=== PATIENT | female | born 1950 | race Caucasian/White ===

== ENCOUNTER 2023-07-27 12:27 | Outpatient (AMB) | payer OTHER, SELFPAY ==
--- NOTE | 2023-07-27 12:51 | MHC.PC.OV ---
Vital Signs 07/27/23 12:52 07/27/23 14:34 Height 5 ft 4 in Weight 199 lb BMI 34.2 BP 160/90 H 160/90 H Blood Pressure Location Lt brachial Lt brachial Position Sitting Sitting Intake Visit Reasons: NPV- requesting pe Intake Note: New patient, establishing care Meter Calibrator Required: No Accompanied by: Self / Same As Patient Allergies metformin Adverse Reaction (Intermediate, Verified 07/27/23 13:29) Diarrhea Medication List - Last Reconciled 07/27/23 by Casandra Akers MD atorvastatin 40 mg PO BEDTIME gabapentin 300 mg PO BID glimepiride 4 mg PO DAILY Tobacco use date assessed: 07/27/23 Fall risk assessment: 1 Fall in past year Last assessed Fall Risk: 07/27/23 Dental Screening Dental Screen Date: 07/27/23 Did you have a dental visit in the last 12 months?: Yes Did you have a dental problem in the last 6 months where you did not have access to dental care?: No Was dental information given to patient?: Patient has dentist HPI HPI Comments History of Present Illness Details This is a 73-year-old female with diabetes mellitus type 2 without long-term current use of insulin complicated by neuropathy, hypertension, and hyperlipidemia that comes today to establish care. She denies any chest pain or shortness on breath. Blood pressure elevated but she used to be on diltiazem and has run out of it. I will start her on losartan to protect her kidneys. She agreed and understand. Blood pressure will be recheck in 3 weeks by nurse navigator. A1c also elevated but she has been out of her medications for over a month. Lipid panel will be order and her LDL goal should be less than 70. Neuropathy stable with gabapentin. She had a fit test this month but results are still pending. Mammogram and bone density was over 2 years ago. [facility] Surgical History (Updated 07/27/23 @ 13:31 by Casandra Akers MD) History of History of elbow surgery History of fracture of wrist History of bilateral knee replacement Family History Father Aneurysm Mother Cancer Social History Housing: House Alcohol intake: current Alcohol intake frequency: holidays/special occasions only Alcohol type: wine Patient Tobacco Use Status: Never used Tobacco e-Cigarette/Vaping Use: Never Used Second Hand Smoke Exposure: No service: No Current occupational status: retired Cognitive needs: Yes Hearing needs: No Vision needs: Yes Questionnaire PHQ-9 Over the last 2 weeks, how often have you been bothered by any of the following problems? 1. Little interest or pleasure in doing things: not at all 2. Feeling down, depressed, or hopeless: not at all 3. Trouble falling or staying asleep, or sleeping too much: not at all 4. Feeling tired or having little energy: not at all 5. Poor appetite or overeating: not at all 6. Feeling bad about yourself - or that you are a failure or have let yourself or your family down: not at all 7. Trouble concentrating on things, such as reading the newspaper or watching television: not at all 8. Moving or speaking so slowly that other people could have noticed. Or the opposite - being so fidgety or restless that you have been moving around a lot more than usual: not at all 9. Thoughts that you would be better off or of hurting yourself in some way: not at all Total score: 0 Source: Developed by Drs. Blade Osman, Dania Peralta, Josue Carreno and colleagues, with an educational patricia from [employer]. Thrive Questionnaire Date Thrive assessed: 07/27/23 I am a: Patient What is your living situation today?: I have a steady place to live Within the past 12 months, did the food you bought not last and you didn't have the money to get more?: Never true Within the past 12 months, did you worry whether your food would run out before you got money to buy more?: Never true Do you have trouble paying for medicines?: No Do you have trouble getting transportation to medical appointments?: No Do you have trouble paying your heating and electricity bill?: No Do you have trouble taking care of your child, family member or friend?: No Do you have trouble with day-to-day activities such as bathing, preparing meals, shopping, managing finances, etc.?: No Are you currently unemployed and looking for a job?: No Are you interested in more education?: No Please select the resources that you would like help with: None Currently or been in a relationship where the following occur: no concerns reported THRIVE Score: 0 AUDIT C Alcohol Use Questionnaire (AUDIT-C) 1. How often do you have a drink containing alcohol?: Monthly or less 2. How many drinks containing alcohol do you have on a typical day when you are drinking?: 1 or 2 3. How often do you have six or more drinks on one occasion?: Never Total Score: 1 MYRIAM-7 AMB Questionnaire MYRIAM-7 Date MYRIAM - 7 assessed: 07/27/23 Feeling nervous, anxious, or on edge: 0 = Not at all Not being able to stop or control worryin = Not at all Worrying too much about different things: 0 = Not at all Trouble relaxin = Not at all Being so restless that it is hard to sit still: 0 = Not at all Becoming easily annoyed or irritable: 0 = Not at all Feeling afraid as if something awful might happen: 0 = Not at all Total MYRIAM-7 score (0-4 normal; 5-9 mild; 10-14 moderate; 15-21 severe): 0 Source: Developed by Drs. Blade Osman, Dania Peralta, Josue Carreno and colleagues, with an educational patricia from [employer]. Review of Systems Const All systems reviewed & are unremarkable except as noted in HPI and below Card Denies chest pain at rest, Denies chest pain with activity, Denies edema, Denies irregular heart rhythm, Denies claudication, Denies dyspnea, Denies dyspnea on exertion, Denies orthopnea, Denies paroxysmal nocturnal dyspnea and Denies slow heart rate Resp Denies cough, Denies dyspnea and Denies dyspnea on exertion Physical exam (Primary Care) Vital Signs: Last Vital Signs BP 160/90 H 07/27/23 12:52 BMI result Body Mass Index 34.2 Tobacco/Smoking Status: Tobacco use Status Tobacco use date assessed 07/27/23 07/27/23 13:02 Patient Tobacco Use Status Never used Tobacco 07/27/23 13:02 Tobacco use type 07/27/23 13:02 e-Cigarette/Vaping Use Never Used 07/27/23 13:02 PHQ-9: PHQ-9 Score PHQ-9: Total score 0 07/27/23 13:40 Thrive Assessment: Date of Thrive Assessment Date Thrive assessed 07/27/23 07/27/23 13:02 Currently or been in a relationship where the following occur: no concerns reported Const Limitations: ambulation with cane Resp Effort & Inspection: normal respiratory effort Auscultation: clear to auscultation bilaterally Cardio Jugular venous distension: no JVD Rate: regular rate Rhythm: regular rhythm Heart sounds: S1 normal heart sound present and S2 normal heart sound present Extrem General: Yes full ROM Results AMB Hemoglobin A1c AMB Hemoglobin A1c 7.5 % Last Edit by ALHAJI Bob on 07/27/23 13:40 Results Reviewed Results Reviewed: Laboratory Last Values Hgb A1c (Clinic) 7.5 % (4.0-6.0) H 07/27/23 13:37 Assessment and Plan Assessment & Plan (1) Type 2 diabetes mellitus, without long-term current use of insulin: Code(s): E11.9 - Type 2 diabetes mellitus without complications Plan: Continue glimepiride. A1c goal is equal or less than 7%. (2) Diabetic neuropathy: Code(s): E11.40 - Type 2 diabetes mellitus with diabetic neuropathy, unspecified Plan: Continue gabapentin. (3) Essential hypertension: Code(s): I10 - Essential (primary) hypertension Plan: Start losartan. Blood pressure goal is equal or less than 130/80. Recheck blood pressure with nurse navigator. (4) Hyperlipidemia LDL goal <70: Code(s): E78.5 - Hyperlipidemia, unspecified Plan: Continue statins. LDL goal is less than 7 Orders: Orders MM screening mammo BI Today Z12.31 - Encounter for screening mammogram for malignant neoplasm of breast Lipid Panel Today E78.5 - Hyperlipidemia, unspecified AMB Hemoglobin A1c Today E11.9 - Type 2 diabetes mellitus without complications XR DEXA axial skeleton Today N95.9 - Unspecified menopausal and perimenopausal disorder Microalbumin, Random (w Creat) Today E11.9 - Type 2 diabetes mellitus without complications Vitamin D 25-OH Total Today E55.9 - Vitamin D deficiency, unspecified Comprehensive [place]. Panel Fast Today E11.9 - Type 2 diabetes mellitus without complications Medications: New losartan 25 mg PO DAILY 90 tabs 1RF 90 days I10 - Essential (primary) hypertension gabapentin 300 mg PO BID 180 caps 1RF 90 days atorvastatin 40 mg PO BEDTIME 90 tabs 1RF 90 days glimepiride 4 mg PO DAILY 90 tabs 1RF 90 days Coding Level of Care Code New Pt Level 4 (94689) Diagnoses Type 2 diabetes mellitus, without long-term current use of insulin E11.9 Diabetic neuropathy E11.40 Essential hypertension I10 Hyperlipidemia LDL goal <70 E78.5 Time Spent (min) 24
[2023-07-27 12:52] VITALS: BP 160/90; BMI 34.2
[2023-07-27 14:34] VITALS: BP 160/90
== END 2023-07-27 13:41 | disposition home or self-care (01) ==
PROVIDERS: PCP Internal Medicine; Visit Provider Internal Medicine
DX: E11.40 Type 2 diabetes mellitus with diabetic neuropathy, unspecified (principal); I10 Essential (primary) hypertension; E78.5 Hyperlipidemia, unspecified
CPT/HCPCS: 83036; 99204

== ENCOUNTER 2023-09-28 10:10 | Outpatient (REF) | payer OTHER, SELFPAY ==
--- NOTE | ~2023-09-28 | MM_ITS ---
EXAMINATION: BONE DENSITOMETRY CLINICAL INDICATION: Unspecified menopausal and perimenopausal disorder. COMPARISON: This is the patient's baseline examination. TECHNIQUE: Using a kapturem DXA System (software version: 13.1) manufactured by [employer], dual-energy x-ray absorptiometry was performed of the lumbar spine and left hip. The images are of good technical quality. Summary results are attached. FINDINGS: LEFT FEMUR, NECK: BMD 0.684 g/cm2, Z-score -1.3, T-score -2.5, osteoporosis. LEFT FEMUR, TOTAL: BMD 0.753 g/cm2, Z-score -1.0, T-score -2.0, osteopenia. AP SPINE L1-L4 (excluding L2): The data of L1-L4 has been changed to exclude the L2 vertebral body, because degenerative sclerosis at this level may cause overestimation of lumbar spine density. BMD 1.106 g/cm2, Z-score 0.3, T-score -0.5, normal. IDENTIFIED RISK FACTORS: Height loss, history of fracture (adult), low calcium intake, menopause. HISTORY OF FRACTURE: Wrist. MEDICATIONS: None listed. MM/XR DEXA axial skeleton IMPRESSION: 1. DIAGNOSIS: Severe osteoporosis based on the lowest T-score value of -2.5 in the femoral neck and history of fracture applying World Health Organization criteria. 2. 10-YEAR FRACTURE RISK PREDICTION, FRAX: According to the guidelines, FRAX calculation should only be performed on patients in the osteopenia bone density category. Therefore, FRAX was not performed on this patient. 3. Treatment Recommendations: NOF guidelines recommend consideration for treatment in postmenopausal women and men age 50 and older presenting with the following: -A hip or vertebral (clinical or morphometric) fracture. -T-score less than or equal to -2.5 at the femoral neck or spine after appropriate evaluation to exclude secondary causes. -Low bone mass at the hip or spine and a 10-year fracture probability by FRAX of greater than or equal to 3% for hip fracture or greater than or equal to 20% for major osteoporotic fracture based on the [place] adapted WHO algorithm. 4. Other Recommendations: All treatment decisions require clinical judgment and consideration of individual patient factors, including patient preferences, comorbidities, previous drug use, risk factors not captured in the FRAX model (e.g. frailty, falls, vitamin D deficiency, increased bone turnover, interval significant decline in bone density) and possible under or overestimation of fracture risk by FRAX. Additional medical evaluation for secondary cause of low bone mineral density may be appropriate. FUTURE SCAN RECOMMENDATION: People with diagnosed cases of osteoporosis or at high risk for fracture should have regular bone mineral density tests. For patients eligible for Medicare, routine testing is allowed once every 2 years. The testing frequency can be increased to one year for patients who have rapidly progressing disease, those who are receiving or discontinuing medical therapy to restore bone mass, or have additional risk factors.
== END 2023-09-28 10:11 | disposition home or self-care (01) ==
LOC: HO.MAMMO 10:10
PROVIDERS: PCP Internal Medicine; Visit Provider Internal Medicine
DX: Z12.31 Encounter for screening mammogram for malignant neoplasm of breast (principal); Z13.820 Encounter for screening for osteoporosis; Z78.0 Asymptomatic menopausal state
CPT/HCPCS: 77063; 77067; 77080

== ENCOUNTER → 2023-09-28 10:45 | Outpatient (BNV) | payer OTHER, SELFPAY | PROVIDERS: PCP Internal Medicine; Visit Provider Radiology Diagnostic Radiology | DX: Z12.31 Encounter for screening mammogram for malignant neoplasm of breast (principal) | CPT/HCPCS: 77063; 77067 ==

== ENCOUNTER 2024-08-22 09:56 | Outpatient (REF) | payer MEDICARE, SELFPAY ==
[2024-08-22 12:01] LABS: Creatinine Urine 32.28 mg/dL; Microalbumin Urine < 5.0 mg/L
[2024-08-22 12:07] LABS: Alanine Aminotransferase 12 U/L (0-31); Albumin Level 4.4 g/dL (3.5-5.0); Alkaline Phosphatase 84 U/L (39-117); Anion Gap 13 (12-20); Aspartate Amino Transferase 20 U/L (5-31); Bilirubin Total 0.6 mg/dL (0.0-1.0); Blood Urea Nitrogen 12 mg/dL (9-16); Carbon Dioxide 28 mmol/L (22-29); Chloride 104 mmol/L (96-108); Cholesterol 153 mg/dL (<200); Estimated Glomerular Filt Rate 59; Glucose Fasting 141 mg/dL (60-99); HDL Cholesterol 42 mg/dL (>40); LDL Cholesterol Calculated 92 mg/dL (<100); Potassium 5.1 mmol/L (3.3-5.1); Sodium 140 mmol/L (135-145); Triglycerides 95 mg/dL (<150)
[2024-08-22 12:22] LABS: Vitamin D 25-OH Total 37.2 ng/mL (>30)
== END 2024-08-22 09:57 | disposition home or self-care (01) ==
LOC: HO.LAB 09:56
PROVIDERS: PCP Internal Medicine; Visit Provider Internal Medicine
DX: Z00.00 Encounter for general adult medical examination without abnormal findings (principal); E11.40 Type 2 diabetes mellitus with diabetic neuropathy, unspecified; E78.5 Hyperlipidemia, unspecified; R80.9 Proteinuria, unspecified; E55.9 Vitamin D deficiency, unspecified; Z79.899 Other long term (current) drug therapy
CPT/HCPCS: 36415; 80053; 80061; 82043; 82306; 82570; 83036; 96127; 99397

== ENCOUNTER 2024-08-22 10:53 | Outpatient (AMB) | payer MEDICARE, SELFPAY ==
--- NOTE | 2024-08-22 11:03 | MHC.PC.OV ---
Vital Signs 08/22/24 11:06 Height 5 ft 4 in Weight 191 lb BMI 32.8 BP 132/86 Blood Pressure Location Lt brachial Position Sitting Intake Visit Reasons: annual exam - see comments Intake Note: Patient here for a physical exam Negative Notcher Required: No Accompanied by: Self / Same As Patient Allergies metformin Adverse Reaction (Intermediate, Verified 08/22/24 11:27) Diarrhea Medication List - Last Reconciled 08/22/24 by Casandra Akers MD atorvastatin 40 mg PO BEDTIME 90 days gabapentin 300 mg PO BID 90 days glimepiride 4 mg PO DAILY 90 days losartan 25 mg PO DAILY 90 days Tobacco use date assessed: 08/22/24 Fall risk assessment: No Falls in past year Last assessed Fall Risk: 08/22/24 Dental Screening Dental Screen Date: 08/22/24 Did you have a dental visit in the last 12 months?: Yes Did you have a dental problem in the last 6 months where you did not have access to dental care?: No Was dental information given to patient?: Patient has dentist HPI HPI Comments History of Present Illness Details The patient is a 74-year-old female presenting for a physical exam and management of chronic conditions. She has a history of osteoporosis, which was diagnosed following a bone density test conducted last year. The patient has not received any treatment for osteoporosis and is considering options for management. The patient has diabetes mellitus, managed with Glymepiride and has an allergy to Metformin, which causes diarrhea. Her A1c was recorded at 12.2% during this visit, indicating poor glycemic control. She is currently on Atorvastatin for hyperlipidemia and Losartan for hypertension. The patient has a history of neuropathy, for which she takes Gabapentin as needed, primarily at bedtime. She has undergone multiple surgeries, including four C-sections, elbow surgery, wrist fracture repair, and bilateral knee replacements. In terms of family history, her mother had cancer and her father had an aneurysm. She does not smoke and rarely consumes alcohol. - Pneumonia vaccination is up to date. - Mammogram was conducted last year. - Bone density screening showed osteoporosis. She has an appointment with Rheumatology in November. - Colon cancer screening with Cologuard was performed approximately a year ago. [facility] Surgical History History of History of elbow surgery History of fracture of wrist History of bilateral knee replacement Family History Father Aneurysm Mother Cancer Social History Housing: House Alcohol intake: current Alcohol intake frequency: holidays/special occasions only Alcohol type: wine Patient Tobacco Use Status: Never used Tobacco e-Cigarette/Vaping Use: Never Used Second Hand Smoke Exposure: No service: No Current occupational status: retired Cognitive needs: Yes Hearing needs: No Vision needs: Yes Questionnaire PHQ-9 Over the last 2 weeks, how often have you been bothered by any of the following problems? 1. Little interest or pleasure in doing things: not at all 2. Feeling down, depressed, or hopeless: several days 3. Trouble falling or staying asleep, or sleeping too much: not at all 4. Feeling tired or having little energy: not at all 5. Poor appetite or overeating: not at all 6. Feeling bad about yourself - or that you are a failure or have let yourself or your family down: not at all 7. Trouble concentrating on things, such as reading the newspaper or watching television: not at all 8. Moving or speaking so slowly that other people could have noticed. Or the opposite - being so fidgety or restless that you have been moving around a lot more than usual: not at all 9. Thoughts that you would be better off or of hurting yourself in some way: not at all Total score: 1 Depression Screening Interpretation: Negative Depression Screening Done: Yes 25899 - PHQ-9 Billing: Yes Source: Developed by Drs. Blade Osman, Dania Peralta, Josue Carreno and colleagues, with an educational patricia from [employer]. Thrive Questionnaire Date Thrive assessed: 08/22/24 I am a: Patient What is your living situation today?: I have a steady place to live Within the past 12 months, did the food you bought not last and you didn't have the money to get more?: Never true Within the past 12 months, did you worry whether your food would run out before you got money to buy more?: Never true Do you have trouble paying for medicines?: I choose not to answer this question Do you have trouble getting transportation to medical appointments?: No Do you have trouble paying your heating and electricity bill?: No Do you have trouble taking care of your child, family member or friend?: No Do you have trouble with day-to-day activities such as bathing, preparing meals, shopping, managing finances, etc.?: No Are you currently unemployed and looking for a job?: No Are you interested in more education?: No Please select the resources that you would like help with: None Currently or been in a relationship where the following occur: No concerns reported THRIVE Score: 0 AUDIT C Alcohol Use Questionnaire (AUDIT-C) 1. How often do you have a drink containing alcohol?: Never Total Score: 0 Score Reviewed/Action Taken: No MYRIAM-7 AMB Questionnaire MYRIAM-7 Date MYRIAM - 7 assessed: 08/22/24 Feeling nervous, anxious, or on edge: 0 = Not at all Not being able to stop or control worryin = Not at all Worrying too much about different things: 0 = Not at all Trouble relaxin = Not at all Being so restless that it is hard to sit still: 0 = Not at all Becoming easily annoyed or irritable: 0 = Not at all Feeling afraid as if something awful might happen: 0 = Not at all Total MYRIAM-7 score (0-4 normal; 5-9 mild; 10-14 moderate; 15-21 severe): 0 Source: Developed by Drs. Blade Osman, Dania Peralta, Josue Carreno and colleagues, with an educational patricia from [employer]. MYRIAM-7 Assessment Billing MYRIAM-7 Assessment Tool: MYRIAM-7 Assessment 46305 Review of Systems Const All systems reviewed & are unremarkable except as noted in HPI and below Card Denies chest pain at rest, Denies chest pain with activity, Denies edema, Denies irregular heart rhythm, Denies claudication, Denies dyspnea, Denies dyspnea on exertion, Denies orthopnea, Denies paroxysmal nocturnal dyspnea and Denies slow heart rate Resp Denies cough, Denies dyspnea and Denies dyspnea on exertion GI Denies abdominal pain, Denies change in bowel habits, Denies excessive flatus, Denies nausea and Denies vomiting Neuro Denies behavioral changes and Denies lack of coordination Psych Denies behavioral changes Physical exam (Primary Care) Vital Signs: Last Vital Signs BP 132/86 08/22/24 11:06 BMI result Body Mass Index 32.8 BMI Assessment/Plan discussion: High BMI High, discussed plan: lifestyle, weight reduction, dietary and physical activity Tobacco/Smoking Status: Tobacco use Status Tobacco use date assessed 08/22/24 08/22/24 11:09 Patient Tobacco Use Status Never used Tobacco 08/22/24 11:09 Tobacco use type 07/27/23 13:40 e-Cigarette/Vaping Use Never Used 08/22/24 11:09 PHQ-9: PHQ-9 Score PHQ-9: Total score 1 08/22/24 11:09 Depression Screening Interpretation: Negative Thrive Assessment: Date of Thrive Assessment Date Thrive assessed 08/22/24 08/22/24 11:09 Currently or been in a relationship where the following occur: No concerns reported Const Limitations: ambulation with cane HENMT Head: Yes normal to inspection, Yes normocephalic and Yes atraumatic Ears: external ears normal Eyes General: appearance normal, both eyes and all related structures Eyelids: Yes eyelids normal Conjunctivae: conjunctivae normal Neck Neck: Yes normal visual inspection and Yes supple Resp Effort & Inspection: normal respiratory effort Auscultation: clear to auscultation bilaterally Cardio Jugular venous distension: no JVD Rate: regular rate Rhythm: regular rhythm Heart sounds: S1 normal heart sound present and S2 normal heart sound present GI Inspection: Yes normal to inspection Palpation (GI): Soft to palpation and nontender Auscultation: normal bowel sounds Skin General skin exam: no rashes or lesions noted Neuro General: no focal motor deficits Extrem General: Yes full ROM Psych Appearance: grossly normal Coding Level of Care Code Est Pt Prev Care >65y(25526) Diagnoses Physical exam Z00.00 Type 2 diabetes mellitus, without long-term current use of insulin E11.9 Diabetic neuropathy E11.40 Additional Codes PHQ-9 - 52387 - PHQ-9 Billing: Yes ([id number]) MYRIAM-7 Assessment Billing - MYRIAM-7 Assessment Tool: MYRIAM-7 Assessment 32521 ([id number]) Time Spent (min) 31 Assessment & Plan Assessment & Plan (1) Physical exam: Code(s): Z00.00 - Encounter for general adult medical examination without abnormal findings Category: Medical (2) Type 2 diabetes mellitus, without long-term current use of insulin: Code(s): E11.9 - Type 2 diabetes mellitus without complications Category: Medical (3) Diabetic neuropathy: Code(s): E11.40 - Type 2 diabetes mellitus with diabetic neuropathy, unspecified Category: Medical Plan The patient will be referred to a specialist for osteoporosis management, with options including oral medication, injections, or infusions discussed. For diabetes management, the patient will start Januvia 25 mg due to the high A1c level and her preference to avoid insulin therapy. Continued use of Atorvastatin and Losartan is advised for hyperlipidemia and hypertension management, respectively. The patient is advised to continue Gabapentin as needed for neuropathy, primarily at bedtime. Preventative care measures, including regular screenings and vaccinations, are to be maintained. Patient was informed and verbally consented to the use of an ambient scribe for clinic note documentation during this visit. I discussed with the patient the management options for osteoporosis, including oral medications, injections, and infusions. We also reviewed her diabetes management, deciding to start Januvia 25 mg due to her high A1c and preference to avoid insulin. I advised her to continue her current medications for hyperlipidemia and hypertension and to maintain her preventative care measures. Orders: Orders Lipid Panel 4 Months E78.5 - Hyperlipidemia, unspecified Microalbumin, Random (w Creat) 4 Months R80.9 - Proteinuria, unspecified Comprehensive [place]. Panel Fast 4 Months E11.9 - Type 2 diabetes mellitus without complications Medications: New sitagliptin phosphate (Januvia) 25 mg PO DAILY 90 tabs 1RF 90 days Patient Instructions: - Follow up with the specialist for osteoporosis management. - Start Januvia 25 mg for diabetes management. - Continue taking Atorvastatin and Losartan as prescribed. - Use Gabapentin as needed for neuropathy, primarily at bedtime. - Maintain regular screenings and vaccinations.
[2024-08-22 11:06] VITALS: BP 132/86; BMI 32.8
== END 2024-08-22 11:41 | disposition home or self-care (01) ==
PROVIDERS: PCP Internal Medicine; Visit Provider Internal Medicine
DX: Z00.00 Encounter for general adult medical examination without abnormal findings (principal); E11.40 Type 2 diabetes mellitus with diabetic neuropathy, unspecified; Z13.9 Encounter for screening, unspecified

== ENCOUNTER 2024-10-03 10:51 | Outpatient (REF) | payer MEDICARE, SELFPAY | END 2024-10-03 10:52 | disposition home or self-care (01) | LOC: HO.MAMMO 10:51 | PROVIDERS: PCP Internal Medicine; Visit Provider Internal Medicine | DX: Z12.31 Encounter for screening mammogram for malignant neoplasm of breast (principal) | CPT/HCPCS: 77063; 77067 ==

== ENCOUNTER → 2024-10-03 11:00 | Outpatient (BNV) | payer MEDICARE, SELFPAY | PROVIDERS: PCP Internal Medicine; Visit Provider Internal Medicine | DX: Z12.31 Encounter for screening mammogram for malignant neoplasm of breast (principal) | CPT/HCPCS: 77063; 77067 ==